=== PATIENT | female | born 1935 | race Caucasian/White ===

== ENCOUNTER 2020-11-14 07:27 | Outpatient (REF) | payer SELFPAY ==
[2020-11-14 07:59] LABS: Hematocrit 34.8 % (37-47); Hemoglobin 11.2 g/dl (12.0-16.0); Mean Corpuscular HGB Conc 32.2 g/dl (31.0-35.0); Mean Corpuscular Hemoglobin 32.1 pg (27.0-33.0); Mean Corpuscular Volume 99.7 fL (80-98); Platelet Count 136 X10*3/uL (160-400); Red Blood Count 3.49 X10*6/uL (4.20-5.50); Red Cell Distribution Width 15.3 % (11.0-16.0); White Blood Count 4.6 X10*3/uL (4.8-10.8)
[2020-11-14 08:25] LABS: Alanine Aminotransferase 25 U/L (0-31); Albumin Level 3.4 g/dL (3.5-5.0); Alkaline Phosphatase 87 U/L (39-117); Anion Gap 9 (12-20); Aspartate Amino Transferase 26 U/L (5-31); Bilirubin Total 0.5 mg/dL (0.0-1.0); Blood Urea Nitrogen 30 mg/dL (9-16); Calcium 8.3 mg/dL (8.4-10.2); Carbon Dioxide 34 mmol/L (22-29); Chloride 101 mmol/L (96-108); Estimated Glomerular Filt Rate 41; Glucose Random 94 mg/dL (60-115); Potassium 4.4 mmol/L (3.3-5.1); Sodium 140 mmol/L (135-145); Total Protein 5.6 g/dL (6.5-8.0)
[2020-11-14 08:46] LABS: Thyroid Stimulating Hormone 2.91 uIU/mL (0.32-4.0)
== END 2020-11-14 07:28 | disposition home or self-care (01) ==
LOC: HO.MMNH1L 07:27
PROVIDERS: Visit Provider Family Medicine
DX: U07.1 COVID-19 (principal); I10 Essential (primary) hypertension
CPT/HCPCS: 36415; 80053; 84443; 85027

== ENCOUNTER 2025-04-15 09:59 | Emergency (ER) | payer OTHER, MEDICARE, SELFPAY ==
[2025-04-15 10:16] VITALS: BP 142/49; BP 150/70; PULSE 59; PULSE 61; RESP 15; TEMP 36.9; O2SAT 92; BMI 27.5
--- NOTE | 2025-04-15 11:09 | ED_ITS ---
HPI - General Adult General Chief complaint: Eye Problems Stated complaint: ?Shingles, right eye infection, swollen closed Time Seen by Provider: 04/15/25 10:37 Source: patient and family Mode of arrival: ambulatory Limitations: language barrier (has aphasia) History of Present Illness ED Provider: HPI narrative: 89-year-old woman with history of stroke and aphasia, presenting with erythema, vesicles, swelling of the right eye with some crusting for the past 3 days, initially seen at [facility] they had prolonged wait times and left without being seen, no fevers or chills, patient does speak some and denied pain, no weakness in upper or lower extremities no altered mentation reported. Related Data Previous Rx's ?Medication ?Instructions ?Recorded erythromycin 5 mg/gram (0.5 %) eye 0.5 inch ophthalmic -Right TID 7 04/15/25 ointment days #3.5 grams prednisone 20 mg tablet 40 mg (2 x 20 mg) PO DAILY 5 days 04/15/25 #10 tabs valacyclovir 500 mg tablet 1,000 mg (2 x 500 mg) PO TI D 7 04/15/25 days #42 tabs Allergies Allergy/AdvReac Type Severity Reaction Status Date / Time saccharin (SACCHARIN) AdvReac Mild LOOSE Verified 04/15/25 10:18 STOOLS soy (SOY) AdvReac Mild LOOSE Verified 04/15/25 10:18 STOOLS Review of Systems Constitutional: Constitutional: Reports as per [facility] Social History Social History Advance Directives: No Advance Directives Information Provided: Yes Physical Exam ED Vital Signs: Vital Signs - 24 hr 04/15/25 10:16 Temperature 98.4 F Pulse Rate 59 Respiratory Rate 15 Blood Pressure 142/49 H Pulse Oximetry 92 Oxygen Delivery Method Nasal Cannula BMI result Body Mass Index 27.5 Const Other: * Gen: ?Elderly woman with facial rash * HEENT: Wood's lamp examination of the right eye performed, there was no evidence of dendrites but corenal abrasion present involving the mid visul field, no lesions in the ER, no lesions in the nose * Neck: No spreading of the lesions over the neck of the scalp * CV: RRR, no obvious murmurs appreciated * Resp: ?No wheezing rales rhonchi no stridor moving air well * Abd: ?Bowel sounds are present, no tenderness no rebound no rigidity * MSK: FROM, strength 5/5 all extremities * Skin: Erythematous forehead and face not crossing the midline with vesicles that are now crusting over, and supra pupil swelling, in the V1 V2 nerve distribution * Neuro: Alert, at her baseline moving upper and lower extremities symmetrically, no obvious facial asymmetry noted Medications Administered Discontinued Medications Generic Name Dose Route Start Last Admin Trade Name Bjq PRN Reason Stop Dose Admin Fluorescein Sodium 1 strip 04/15/25 11:09 04/15/25 12:55 Fluorescein Sodium Strip EYE-LEFT 04/15/25 11:10 1 strip ONCE ONE Administration Tetracaine HCl 1 drop 04/15/25 11:09 04/15/25 12:55 Tetracaine Hcl 0.5% Oph Catherine 5 Ml Drops EYE-LEFT 04/15/25 11:10 1 drop ONCE ONE Administration Tetracaine HCl 1 drop 04/15/25 11:30 04/15/25 11:47 Tetracaine Hcl/Pf 0.5% Oph Catherine 4 Ml Drops EYE-LEFT 04/15/25 11:31 Not Given ONCE ONE Medical Decision Making Medical Decision Making [facility] Narrative: Patient is presenting with V1 V2 shingles on the right side, does not appear to be disseminated, does not appear to be involving her optic nerve or ophthalmic nerve, there was no altered mentation she is nonfebrile is no indication that this is presenting with encephalitis, we will need antibiotic ointment for the eye as she has some crusting, and Wood's lamp examination does not reveal any evidence for dendrites, there is a corneal abrasion vision is intact grossly at bedside Differential Diagnosis Differential Diagnoses: The differential diagnosis associated with the presentation includes Herpes zoster, disseminated zoster, encephalitis, cellulitis, zoster Romi's, zoster ophthalmicus Critical Care Time Critical Care Time Total Critical Care Time: 45 Attestation: Time is exclusive of separately billable procedures. Time includes: direct patient care, patient reassessment, coordination of patient care, interpretation of data (laboratory data, pulse oximetry, arterial blood gases and chest xrays), review of patient's medical records, medical consultation and documentation of patient care. Procedures excluded from critical care time: central intravenous line placement and electrocardiography. Discharge Plan Discharge Clinical Impression: Bacterial conjunctivitis Corneal abrasion Qualifiers: Encounter type: initial encounter Laterality: right Qualified Code(s): S05.01XA - Injury of conjunctiva and corneal abrasion without foreign body, right eye, initial encounter Herpes zoster Qualifiers: Herpes zoster complications: with other complications Qualified Code(s): B02.8 - Zoster with other complications Patient Disposition: Home, Self-Care Instructions: Shingles (ED), Corneal Abrasion (DC) Additional Instructions: As discussed there is shingles on the right side of the face, there was no involvement of the cornea but there was a corneal abrasion, clean the eye as we have discussed and then apply erythromycin ointment 3 times a day, steroids to help with the pain and swelling and valacyclovir as an antiviral take 2 pills 3 times a day, any confusion, spiking fevers, significant headaches come back to the ER, you can take Tylenol 975 mg every 6 hours needed for pain Prescriptions: New prednisone 20 mg tablet 40 mg PO DAILY 5 Days Qty: 10 0RF valacyclovir 500 mg tablet 1,000 mg PO TID 7 Days Qty: 42 0RF erythromycin 5 mg/gram (0.5 %) ointment 0.5 inch ophthalmic-Right TID 7 Days Qty: 3.5 0RF Referrals: Xochitl Lincoln NP [Primary Care Provider, Internal Medicine] - 1 week Clinical Impression: Corneal abrasion; Bacterial conjunctivitis; Herpes zoster Print Language: Barbadian
[2025-04-15] MEDS: Fluorescein Sodium STRIP 1 STRIP EYE-LEFT (12:55)
[2025-04-15] MEDS: Tetracaine HCl 0.5% Oph Sol 5 ML DROPS 1 DROP EYE-LEFT (12:55)
[2025-04-15 13:19] VITALS: BP 140/59; PULSE 60; RESP 16; TEMP 36.9; O2SAT 94
[2025-04-15 13:20] VITALS: BP 140/59; PULSE 60; RESP 16; TEMP 36.9; O2SAT 94
== END 2025-04-15 13:30 | disposition home or self-care (01) ==
PROVIDERS: Emergency Provider Emergency Medicine; PCP Nurse Practitioner Family
DX: B02.8 Zoster with other complications (principal); H10.89 Other conjunctivitis; H57.89 Other specified disorders of eye and adnexa; S05.01XA Injury of conjunctiva and corneal abrasion without foreign body, right eye, initial encounter; X58.XXXA Exposure to other specified factors, initial encounter; Y93.9 Activity, unspecified; Y92.9 Unspecified place or not applicable; Y99.9 Unspecified external cause status
CPT/HCPCS: 99282; 99283; 99291

== ENCOUNTER 2025-09-22 07:21 | Emergency (ER) | payer MEDICARE, OTHER, SELFPAY ==
--- NOTE | ~2025-09-22 | CT_ITS ---
EXAMINATION: CT CERVICAL SPINE WITHOUT CONTRAST CLINICAL INFORMATION: Fall, neck pain, head strike. On blood thinners. COMPARISON: None available. TECHNIQUE: Spiral CT imaging of the cervical spine performed in axial plane without contrast. Multiplanar reformatted images were constructed from the axial data set. This CT examination was performed using dose optimization techniques as appropriate, variously including the following: *Automated exposure control *Adjustment of mA and/or kV according to patient size (this includes techniques or standardized protocols for targeted exams where dose is matched to indication/reason for exam; i.e. extremities or head) *Use of iterative reconstruction technique FINDINGS: CORONAL ALIGNMENT: -Normal. SAGITTAL ALIGNMENT: -Straightening of the normal lordosis. -2 mm degenerative anterolisthesis C3 on C4. -2 mm degenerative retrolisthesis C4 on C5, and C6 on C7. C1-C2 AND CRANIOCERVICAL JUNCTION: -Intact and normally aligned. There are moderate degenerative changes in the anterior atlantoaxial joint. VERTEBRAL BODIES AND FACETS: -There is no fracture, compression deformity, or traumatic subluxation. No suspicious bone lesion. -Normal facet alignment bilaterally. Fusion of the C4-5 facets on the left, likely degenerative. DISCS: -Severe multilevel disc degeneration is present throughout. There are prominent Schmorl's nodes in the superior endplates of C7 and T1. CENTRAL CANAL: -No evidence of high-grade central canal narrowing or large disc herniation allowing for modality limitations. PREVERTEBRAL AND PARAVERTEBRAL SOFT TISSUES: -There is no prevertebral or paravertebral soft tissue swelling or edema. No abnormal fluid collections. -The thyroid is normal without nodule. -Moderate to heavy carotid bulb calcifications right greater than left. LUNG APICES: -Pleural lipoma in the posterior left apex. -Respiratory motion degradation is present, however the individual apices are grossly clear. Partial expiratory appearance. -There is a 4 mm left apical nodule with a central calcification suggestive of a granuloma. This appears unchanged from a CT angiography neck examination 04/13/2019. CT/CT cervical spine wo IV con IMPRESSION: 1. No CT evidence of acute cervical spine fracture or injury. 2. Moderate diffuse degenerative spondylosis. Electronically signed by: Vignesh Warren MD 09/22/2025 09:47 AM [facility]
--- NOTE | ~2025-09-22 | CT_ITS ---
EXAMINATION: CT HEAD WITHOUT CONTRAST CLINICAL INFORMATION: Fall, on blood thinners. Laceration above right eye. Reported LOC. COMPARISON: 04/13/2019. TECHNIQUE: Contiguous axial imaging was performed from the skull base to vertex without intravenous administration of contrast. This CT examination was performed using dose optimization techniques as appropriate, variously including the following: *Automated exposure control *Adjustment of mA and/or kV according to patient size (this includes techniques or standardized protocols for targeted exams where dose is matched to indication/reason for exam; i.e. extremities or head) *Use of iterative reconstruction technique FINDINGS: There is no evidence of intracranial hemorrhage or extra-axial fluid collection. There is no mass effect, or edema. No CT evidence of acute territorial infarct. Old large territory infarct in the left MCA distribution with associated cystic encephalomalacia, and extra vacuo dilatation of the left lateral ventricle atrium and temporal horn, with lesser degree of the body. Ventricles, sulci, and cisterns are otherwise normal in size and configuration for patient age. No hydrocephalus. No midline shift. Negative hyperdense MCA sign. Negative insular ribbon sign. There are pachymeningeal calcifications present. Patchy periventricular and deep white matter hypoattenuation is consistent with moderate small vessel ischemic changes. Normal pituitary. Atheromatous calcification of the bilateral carotid siphons and V4 segments vertebral arteries bilaterally. Globes and orbital contents image normally. There is a right lens replacement. There is right supraorbital scalp soft tissue swelling and laceration. The paranasal sinuses, mastoid air cells, and tympanic cavities are normally aerated. No suspicious bony abnormalities. There are no acute fractures evident. CT/CT head/brain wo IV con IMPRESSION: 1. No acute intracranial abnormality. No acute fracture evident. 2. Right frontal/supraorbital scalp soft tissue swelling and laceration. 3. 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 Electronically signed by: Vignesh Warren MD 09/22/2025 09:53 AM EST
[2025-09-22 07:27] VITALS: BP 150/92; PULSE 68; PULSE 74; RESP 12; O2SAT 97; BMI 26.3
--- NOTE | 2025-09-22 07:39 | ED_ITS ---
HPI - Fall General Chief Complaint: Fall Stated Complaint: FALL + HEAD STRIKE + COLLAR Time Seen by Provider: 09/22/25 07:29 Source: family (son) and EMS Mode of arrival: EMS Limitations: other (dementia) History of Present Illness ED Provider: HPI Narrative: Elderly female brought from home after a ground-level fall in her kitchen, witnessed remotely by family via video camera. Family reports the patient tripped while not using her walker. Patient is on blood thinners and uses home oxygen at 2 L baseline. She sustained a 2 cm laceration above the right eye (no ocular involvement) and a right knee skin tear. No reported loss of consciousness. Patient is confused and repeatedly states her age as ?11.? She denies pain elsewhere but exam limited by confusion. No chest pain or shortness of breath reported. Related Data Previous Rx's ?Medication ?Instructions ?Recorded erythromycin 5 mg/gram (0.5 %) eye 0.5 inch ophthalmic -Right TID 7 04/15/25 ointment days #3.5 grams prednisone 20 mg tablet 40 mg (2 x 20 mg) PO DAILY 5 days 04/15/25 #10 tabs valacyclovir 500 mg tablet 1,000 mg (2 x 500 mg) PO TI D 7 04/15/25 days #42 tabs Allergies Allergy/AdvReac Type Severity Reaction Status Date / Time saccharin (SACCHARIN) AdvReac Mild LOOSE Verified 09/22/25 07:39 STOOLS soy (SOY) AdvReac Mild LOOSE Verified 09/22/25 07:39 STOOLS Review of Systems 2 Review of Systems: Yes Unobtainable due to mental status Constitutional: Constitutional: Reports as per [facility] Social History Social History Smoked in Last 30 Days: No Use of substances other than those prescribed or required for medical reasons: No Advance Directives: No Advance Directives Information Provided: Yes Physical Exam 2 Exam: Exam: General: Elderly female, confused, answers questions inappropriately (states age as 11). Head: 2 cm laceration superior to right eye, no orbital involvement. Eyes: Pupils equal; no obvious ocular injury. Mouth/Oral: No oral trauma. Neck: Cervical collar as patient was not able to tolerate, she was noted to be moving her neck without any pain or visible discomfort Chest: No tenderness to palpation; no visible bruising. Lungs are clear S1-S2 Musculoskeletal: Right knee skin tear noted; injury not fully visualized as pants were not removed during initial exam. Hips with abnormal motion noted. Ankles without deformity or tenderness. Neurologic: Alert but disoriented; answers questions inappropriately. Skin: Laceration above right eye, right knee skin tear. also 2 cm thenar eminence right hand Vital Signs: Vital Signs: Last Vital Signs Pulse 68 09/22/25 07:27 Resp 12 09/22/25 07:27 BMI result Body Mass Index 26.3 Medications Administered Discontinued Medications Generic Name Dose Route Start Last Admin Trade Name Julio Cesar PRN Reason Stop Dose Admin Lidocaine HCl 10 ml 09/22/25 07:39 09/22/25 08:54 Lidocaine Hcl 1 % 20 Ml Vial INFILTRATI 09/22/25 07:40 10 ml ONCE ONE Administration Procedures Laceration forehead: Site: face Side (If applicable): right Size (cm): 2 Description: flap Depth: simple, single layer Local Anesthetic: lidocaine 1% Amount of anesthesia used (mL): 5 Pre-repair: irrigated extensively Skin layer closed with: nylon Size (cm): 5-0 Number of sutures: 8 Technique: running right hand: Side (If applicable): right Size (cm): 2 Description: linear Depth: simple, single layer Local Anesthetic: lidocaine 1% Amount of anesthesia used (mL): 5 Pre-repair: irrigated extensively Skin layer closed with: nylon Size (cm): 3-0 Number of sutures: 7 Technique: running Medical Decision Making Medical Decision Making MDM Narrative: Assessment & Plan Elderly female on anticoagulation with ground-level fall, head laceration, confusion, and right knee skin tear. No focal neurologic deficits noted on initial exam, she does have baseline dementia we will obtain additional information from family Will proceed with wound repair and neuro-imaging due to anticoagulation and altered mental status. Problem #1: Scalp/forehead laceration above right eye Assessment: 1?2 cm laceration, no ocular involvement. Plan: - Irrigate and anesthetize with lidocaine. - Suture repair in ED. - Family notified; standard wound care instructions to be provided at discharge. Problem #2: Fall on anticoagulation with confusion Assessment: Ground-level fall, on blood thinners, currently confused/disoriented. Plan: - CT head and neck ordered to rule out intracranial bleeding. - Neurologic checks in ED while awaiting imaging. - Update family on imaging results and further care plan. Problem #3: Right knee skin tear Assessment: Superficial skin tear to right knee. Plan: - Clean wound; apply gauze and tape dressing. - Provide wound care instructions on discharge. Differential Diagnosis Differential Diagnoses: The differential diagnosis associated with the presentation includes (Head injury, neck injury, hip injuries, syncope, non syncope) Admission/Observation Consideration of admission/observation: Escalation of care including admission/observation considered Lab Data MDM Lab Attestation statement: I reviewed the patient's lab results. 09/22/25 07:43 09/22/25 08:20 Labs: Lab Results 09/22/25 09/22/25 Range/Units 07:43 08:20 WBC 10.2 (4.8-10.8) X10*3/uL RBC 4.38 (4.20-5.50) X10*6/uL Hgb 13.7 (12.0-16.0) g/dl Hct 42.7 (37.0-47.0) % MCV 97.5 (80.0-98.0) fL MCH 31.3 (27.0-33.0) pg MCHC 32.1 (31.0-35.0) g/dl RDW 14.0 (11.0-16.0) % Plt Count 148 L (160-400) X10*3/uL MPV 11.2 (9.4-12.3) fL Immature Gran % (Auto) 0.5 H (0.0-0.4) % Neut % (Auto) 81.4 H (45-73) % Lymph % (Auto) 7.4 L (20-40) % [place] % (Auto) 9.4 (2-11) % Eos % (Auto) 0.9 (0-4) % Baso % (Auto) 0.4 (0-2) % Lymph # (Auto) 0.8 L (1.2-4.9) X10*3/uL [place] # (Auto) 1.0 (0.1-1.2) X10*3/uL Eos # (Auto) 0.1 (0.0-0.4) X10*3/uL Baso # (Auto) 0.0 (0.0-0.2) X10*3/uL Abs Immat Gran (auto) 0.05 H (0.00-0.03) X10*3/uL Absolute Neuts (auto) 8.3 (2.0-8.3) x10*3/uL Absolute Nucleated RBC 0.000 (0.0-0.012) X10*3/uL Nucleated RBC % (auto) 0.0 (0.0-0.2) /100WBC PT 13.7 H (11.2-13.5) SEC INR 1.1 (0.9-1.1) Sodium 139 (135-145) mmol/L Potassium 5.5 H (3.3-5.1) mmol/L Chloride 102 (96-108) mmol/L Carbon Dioxide 28 (22-29) mmol/L Anion Gap 15 (12-20) BUN 35 H (9-16) mg/dL Creatinine 1.70 H (0.5-1.4) mg/dL Estim Creat Clear Calc 22.7 Estimated GFR 28 Random Glucose 107 (60-115) mg/dL Calcium 9.6 D (8.4-10.2) mg/dL Total Bilirubin 0.7 (0.0-1.0) mg/dL AST 53 H (5-31) U/L ALT 15 (0-31) U/L Alkaline Phosphatase 96 (39-117) U/L Troponin I High Sens 9.7 (<3.5-17.0) ng/L Total Protein 7.8 (6.5-8.0) g/dL Albumin 4.6 (3.5-5.0) g/dL Independent Interpretation I performed an independent interpretation of an: EKG (65 beats per minute otherwise normal ECG without dysrhythmia, AV jocelyne blocks or ST-T changes to suspect underlying ACS, my independent interpretation) Radiology Impression Discussion of test interpretation with radiology: I have reviewed the radiologist's reading. Radiologist Impression: No acute intracranial abnormality. No acute fracture evident. 2. Right frontal/supraorbital scalp soft tissue swelling and laceration. 3. 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 CT/CT cervical spine wo IV con IMPRESSION: 1. No CT evidence of acute cervical spine fracture or injury. 2. Moderate diffuse degenerative spondylosis. Independent Historian Clinical information obtained from an independent historian. History obtained from or confirmed by: EMS and Other (Family) Discharge Plan Discharge Clinical Impression: Fall from standing, Face lacerations, Hand laceration Patient Disposition: Home, Self-Care Additional Instructions: Ice to the areas that hurt, Tylenol 975 mg as needed for pain Bruise is to be expected Facial laceration typically recommend removal in 7 days and she has a hand laceration that was repaired as well that can be removed in 7-10 days, would say at the time your removing sutures from the face assess whether the hand laceration can be addressed as well if not wait a few more days Blood work, EKG CT brain, CT cervical spine unremarkable Fall precautions at home Any other issues concerns come back to the ER Otherwise follow up with the PCP Prescriptions: No Action prednisone 20 mg tablet 40 mg PO DAILY 5 Days Qty: 10 0RF valacyclovir 500 mg tablet 1,000 mg PO TID 7 Days Qty: 42 0RF erythromycin 5 mg/gram (0.5 %) ointment 0.5 inch ophthalmic-Right TID 7 Days Qty: 3.5 0RF Print Language: Tajik
--- NOTE | 2025-09-22 07:39 | ECG_ITS ---
Test Reason : fall Blood Pressure : */* mmHG Vent. Rate : 65 BPM Atrial Rate : 65 BPM P-R Int : 168 ms QRS Dur : 76 ms QT Int : 416 ms P-R-T Axes : 76 35 29 degrees QTcB Int : 432 ms Sinus rhythm with Premature atrial complexes Otherwise normal ECG When compared with ECG of 13-Apr-2019 12:30, No significant change was found Referred By: Jose Morales Electronically Signed By: Urbano Ruiz
[2025-09-22 07:50] LABS: MANUAL DIFF FLAG NO
[2025-09-22 07:56] LABS: Hematocrit 42.7 % (37.0-47.0); Hemoglobin 13.7 g/dl (12.0-16.0); Imm Gran Abs Auto 0.05 X10*3/uL (0.00-0.03); Imm Gran Pct Auto 0.5 % (0.0-0.4); Lymphocytes Absolute Auto 0.8 X10*3/uL (1.2-4.9); Mean Corpuscular HGB Conc 32.1 g/dl (31.0-35.0); Mean Corpuscular Hemoglobin 31.3 pg (27.0-33.0); Mean Corpuscular Volume 97.5 fL (80.0-98.0); NRBC Abs Auto 0.000 X10*3/uL (0.0-0.012); NRBC Pct Auto 0.0 /100WBC (0.0-0.2); Platelet Count 148 X10*3/uL (160-400); Red Blood Count 4.38 X10*6/uL (4.20-5.50); White Blood Count 10.2 X10*3/uL (4.8-10.8)
[2025-09-22 07:58] LABS: INTERNATIONAL NORM RATIO 1.1 (0.9-1.1); Prothrombin Time 13.7 SEC (11.2-13.5)
--- NOTE | 2025-09-22 08:25 | MHC.EDTECH ---
Skin tear cleaned with normal saline on right knee, non-adhesive dressing applied and secured with an KUSH bandage. Right eye cleaned with normal saline. Tolerated well by patient
[2025-09-22 08:42] LABS: Alanine Aminotransferase 15 U/L (0-31); Albumin Level 4.6 g/dL (3.5-5.0); Alkaline Phosphatase 96 U/L (39-117); Anion Gap 15 (12-20); Aspartate Amino Transferase 53 U/L (5-31); Blood Urea Nitrogen 35 mg/dL (9-16); Calcium 9.6 mg/dL (8.4-10.2); Carbon Dioxide 28 mmol/L (22-29); Chloride 102 mmol/L (96-108); Creatinine Clr Calc Pharmacy 22.7; Estimated Glomerular Filt Rate 28; Potassium 5.5 mmol/L (3.3-5.1); Sodium 139 mmol/L (135-145); Total Protein 7.8 g/dL (6.5-8.0)
[2025-09-22 08:46] LABS: Troponin-I High Sensitivity 9.7 ng/L (<3.5-17.0)
--- OUTSIDE RECORDS SUMMARY | 2025-09-22 08:46 | XMS_ITS | Data Portability ---
Author Organization [place] [facility] Address [address] [place] [id number] Care Team Providers Care Air Traffic Coordinator Name Role Phone MARGARET POWERS Primary Care Provider [phone] Assessment Encounter Date Assessment Date Assessment LastModified by Organization Details LastModified Time 08/14/2020 08/14/2020 Overview/History : Patient was seen today for a primary complaint of new onset upper right extremity swelling that started 4 days ago. Patient and family report no mechanism of injury or fall. The dependent bilateral 2-3+ edema to her LE that is chronic has also increased with the RLE being greater than the left. Patient reports increased SOB and weakness. Her medical history is significant for bowel cancer; she had a surgical procedure for removal of cancerous bowel years ago. Her history is also significant for carotid endarterectomy bilaterally, HTN, hyperlipidemia, depression and stroke x 2 with her last stroke 04/2019. Exam: Patient HR initially on 02 sat monitor 76. HR by auscultation 124 irregularly irregular. At this point, an ECG was completed and resulted to new onset AFIB. Patient lung sounds diminished, tachypneic at a rate of 24. Her abdomen is firm palpation, particularly the upper left and right quadrants, her BS are hypoactive throughout. Patient's upper right extremity is edematous, non-pitting and cooler to touch when compared to the left side. Edema noted to LE, 2-3+ pitting, the right side greater than the left. Patient radial pulses palpable, upper left 2+, upper right radial pulse 1+. Unable to appreciate LE pulses due to edema and compression wrap. Patient neuro grossly intact with exception of noted right LE weakness which is baseline per patient and family report. DDx considered, but not limited to: New onset AFIB verified by EKG DVT cannot be ruled out to upper right extremity given cool limb, soft radial pulse, new onset edema CHF considered, however, lung sounds clear Work up/Results: EKG - new onset AFIB Peripheral IV #20 guage left AC placed Plan/Discussion: 1. Discussed transfer to ED to manage new onset AFIB and evaluate for DVT. Family and patient agree to escalation. Patient transferred to the care of [facility]. Expect called to [facility]. The patient's PCP was faxed a copy of this visit. Proper Personal Protective Equipment (PPE), including surgical mask with face-shield, gloves, gown and shoe covers were donned and doffed appropriately and all equipment cleaned using approved technique with germicidal disposable wipes prior to and after care of this patient according [facility] infection prevention protocols. In order to obtain further information and compare any laboratory results/values, I have accessed old patient records. This information was pertinent in my medical decision making today.dm Time On Scene with Patient: 01:08:20 - Referred - Point of Care: Emergency Department Not available 08/14/2020 12:50:22 10/14/2022 10/14/2022 Brief Overview: Patient is a 87 year old female who is new to DH/new to provider who has a PMH including carotid endarterectomy bilaterally, HTN, hyperlipidemia, depression and stroke x 2 with her last stroke 04/2019, A FIB on [facility] who is being today for reports of productive cough. Patient with aphasia from her stroke so conversation at times difficult. Most of history obtain via daughter Amy on the telephone who is also her HCP. Productive cough has been ongoing for 1 week now, denies any fevers, eating and drinking without issue. Daughter in law was present in the home and states she just had bowl of soup, she is also sipping on water bottle. Pt herself denies any SOB/CP, just complains of the cough with a pile of Kleenex on bedside table. Daughter also reports she has gained 5-10 pounds over the course of month so she will be resuming her Torsemide. Vital Signs: HR 82-118 via radial, 98.7, 112/68 RR 20 initial o2 sat 80% however with deep inspiration 89%. Spoke with daughter on the phone, she states this is her baseline 02 sat/HR given the a fib. Exam: Patient seen in her home, daughter in law present. Vitals stable, a febrile. LS CTA aside from bases with rhonci/dim. She has aphasia so answering questions hard for her to find words. + BS x4. Abd soft/non tender. No lymphadenopathy present. Tonsils without erythema or exudate. EAC without erythema or edema. Moist mucous membranes. Bilateral LE with 1+ edema. DDx considered, with rationale: CAP; considered given an initial o2 saturation low without deep inspiration, productive cough, adventitious lung sounds. Viral syndrome; considered givens symptoms. Rapid COVID/flu negative, will send panel for further review.. Sepsis; ruled out with physical exam, well appearing/non toxic, without hypotension. Long discussion had with her daughter Amy over the phone (she is also patient's HCP as pt cannot make decisions for herself). I initially expressed my concern with patients low o2 level however patient was able to bring up to 89% when asked to take deep breaths. Daughter states this is her baseline and she is without any SOB/in no distress. Given her lung sounds/productive cough with low 02 sats will initiate tx for presumed CAP. Daughter is also resuming her Torsemide today given her weight gain/LE edema. She will also follow up with her renal MD for further dose adjustments. I do not hear any crackles in her lungs so that is reassuring. Presumed CAP; -- CXR pending -- Allergy PCN/ she is without significant comorbidities so will prescribe Doxycycline to be taken as directed. -- Respiratory panel pending I have provided daughter /HCP Amy with [facility]'s contact information. Aware we will also follow up with CXR results and her respiratory panel. She will also follow up with PCP in 5-7 days. ED precautions discussed as well; any SOB, CP, change in mental status, inability to tolerate oral intake, weakness. Patient/daughter in agreement with plan and thanked us for the care provided. All questions asked answered. Proper Personal Protective Equipment (PPE), including gloves, eye protection and masks were donned and doffed appropriately and all equipment cleaned using approved technique with germicidal disposable wipes prior to and after care of this patient according to [facility]'s infection prevention protocols. [email or web address] Not available 10/14/2022 12:54:59 Plan of Treatment Reminders Order Date Submit Date Provider Last Modified By Organization Details Last Modified Time Details Appointments None recorded. Lab respiratory virus panel 2022 023 JADWIN [facility] (Centralized Electronic Ordering - All Locations), Patient Can Go To The Location Of Their Choice, [id number] 3 02:06:55 rapid flu (A+B) 2022 023 [email or web address] [facility], [address] [facility], [place], [address], 3 12:23:01 rapid SARS CoV 2 Ag, QL IA, respiratory specimen 2022 023 [email or web address] [facility], [address] [facility], [place], [address], 3 12:23:03 Referral None recorded. Procedures None recorded. Surgeries None recorded. Imaging XR, chest, 2 view - CALL DAUGHTER AMY WITH APPT/INFORM ATION [address] [address] [employer] ([employer]), [address] [facility], [place], [address], 3 16:18:07 Medication Orders doxycycline hyclate 100 mg capsule 2022 023 JADWIN [id number], [address] [facility] [place], [address], 3 03:40:43 Patient TargetsNo targets recorded. Patient Instructions Encounter Date Encounter Id Patient Instructions Last Modified By Organization Details Last Modified Time 08/14/2020 [id number] rhythm strip, EKG* [id number] Not availa ble 08/22/2020 11:16:39 Thank you for yo ur visit with [facility] today. We cannot always find the exact cause of your symptoms during your initial visit. Please follow up with your primary care provider or specialist to be rechecked or seek medical attention if your symptoms do not go away or get worse. If you develop any new or worsening symptoms and need after hours care, please go to nearest ER and/or call 911. If you have additional concerns or develop a change in your condition between 8am-10pm, please call [facility] at [phone] to help navigate your care. Not available 08/14/2020 11:53:16 Reason for Referral None Reported. Results Created Date Observation Date Name Description Value Unit Range Abnormal Flag Note LastModifiedBy Organization Detail LastModifiedTime 10/14/1910/17/2022 RESPI RATOR Y PROFI LE, PCR adenovirus Not Detec gayle Refer ence range : Not Detec gayle Not Available [facility] (Centralized Electronic Ordering - All Locations) Patient Can Go To The Location Of Their Choice, 10/17/2022 02:06:55 10/14/1910/17/2022 RESPI RATOR Y PROFI LE, PCR coronavirus hku1 (not covid-19 Not Detec gayle Refer ence range : Not Detec gayle Not Available [facility] (Centralized Electronic Ordering - All Locations) Patient Can Go To The Location Of Their Choice, 10/17/2022 02:06:55 10/14/1910/17/2022 RESPI RATOR Y PROFI LE, PCR coronavirus nl63 (not covid-19 Not Detec gayle Refer ence range : Not Detec gayle Not Available [facility] (Centralized Electronic Ordering - All Locations) Patient Can Go To The Location Of Their Choice, 10/17/2022 02:06:55 10/14/1910/17/2022 RESPI RATOR Y PROFI LE, PCR coronavirus 229E (not covid-19 Not Detec gayle Refer ence range : Not Detec gayle Not Available [facility] (Centralized Electronic Ordering - All Locations) Patient Can Go To The Location Of Their Choice, 10/17/2022 02:06:55 10/14/1910/17/2022 RESPI RATOR Y PROFI LE, PCR coronavirus oc43 (not covid-19 Not Detec gayle Refer ence range : Not Detec gayle Not Available [facility] (Centralized Electronic Ordering - All Locations) Patient Can Go To The Location Of Their Choice, 10/17/2022 02:06:55 10/14/1910/17/2022 RESPI RATOR Y PROFI LE, PCR human metapneumovi jocelyn Not Detec gayle Refer ence range : Not Detec gayle Not Available [facility] (Centralized Electronic Ordering - All Locations) Patient Can Go To The Location Of Their Choice, 10/17/2022 02:06:55 10/14/1910/17/2022 RESPI RATOR Y PROFI LE, PCR human rhinovirus/e nterovirus Not Detec gayle Refer ence range : Not Detec gayle Not Available [facility] (Centralized Electronic Ordering - All Locations) Patient Can Go To The Location Of Their Choice, 10/17/2022 02:06:55 10/14/1910/17/2022 RESPI RATOR Y PROFI LE, PCR influenza A Not Detec gayle Refer ence range : Not Detec gayle Not Available [facility] (Centralized Electronic Ordering - All Locations) Patient Can Go To The Location Of Their Choice, 10/17/2022 02:06:55 10/14/1910/17/2022 RESPI RATOR Y PROFI LE, PCR influenza A/H1 TEST NOT PERFOR MED (NOTE ) Test not perfo rmed Not Available [facility] (Centralized Electronic Ordering - All Locations) Patient Can Go To The Location Of Their Choice, 10/17/2022 02:06:55 10/14/1910/17/2022 RESPI RATOR Y PROFI LE, PCR influenza A/H1-2009 TEST NOT PERFOR MED (NOTE ) Test not perfo rmed Not Available [facility] (Centralized Electronic Ordering - All Locations) Patient Can Go To The Location Of Their Choice, 10/17/2022 02:06:55 10/14/1910/17/2022 RESPI RATOR Y PROFI LE, PCR influenza A/H3 TEST NOT PERFOR MED (NOTE ) Test not perfo rmed Not Available [facility] (Centralized Electronic Ordering - All Locations) Patient Can Go To The Location Of Their Choice, 10/17/2022 02:06:55 10/14/1910/17/2022 RESPI RATOR Y PROFI LE, PCR influenza B Not Detec gayle Refer ence range : Not Detec gayle Not Available [facility] (Centralized Electronic Ordering - All Locations) Patient Can Go To The Location Of Their Choice, 10/17/2022 02:06:55 10/14/19 23 10/17/2022 RESPI RATOR Y PROFI LE, PCR parainfluenz a 1 Not Detec gayle Refer ence range : Not Detec gayle Not Available [facility] (Centralized Electronic Ordering - All Locations) Patient Can Go To The Location Of Their Choice, [facility] [place] 10/17/2022 02:06:55 10/14/19 23 10/17/2022 RESPI RATOR Y PROFI LE, PCR parainfluenz a 2 Not Detec gayle Refer ence range : Not Detec gayle Not Available [facility] (Centralized Electronic Ordering - All Locations) Patient Can Go To The Location Of Their Choice, [facility] [place] 10/17/2022 02:06:55 10/14/19 23 10/17/2022 RESPI RATOR Y PROFI LE, PCR parainfluenz a 3 Not Detec gayle Refer ence range : Not Detec gayle Not Available [facility] (Centralized Electronic Ordering - All Locations) Patient Can Go To The Location Of Their Choice, [facility] [place] 10/17/2022 02:06:55 10/14/19 23 10/17/2022 RESPI RATOR Y PROFI LE, PCR parainfluenz a 4 Not Detec gayle Refer ence range : Not Detec gayle Not Available [facility] (Centralized Electronic Ordering - All Locations) Patient Can Go To The Location Of Their Choice, [facility] [place] 10/17/2022 02:06:55 10/14/19 23 10/17/2022 RESPI RATOR Y PROFI LE, PCR respiratory syncytial virus Not Detec gayle Refer ence range : Not Detec gayle Not Available [facility] (Centralized Electronic Ordering - All Locations) Patient Can Go To The Location Of Their Choice, [facility] [place] 10/17/2022 02:06:55 10/14/19 23 10/17/2022 RESPI RATOR Y PROFI LE, PCR bordetella pertussis Not Detec gayle Refer ence range : Not Detec gayle Not Available [facility] (Centralized Electronic Ordering - All Locations) Patient Can Go To The Location Of Their Choice, [facility] [place] 10/17/2022 02:06:55 10/14/1910/17/2022 RESPI RATOR Y PROFI LE, PCR chlamydophil a pneumoniae Not Detec gayle Refer ence range : Not Detec gayle Not Available [facility] (Centralized Electronic Ordering - All Locations) Patient Can Go To The Location Of Their Choice, [id number] 10/17/2022 02:06:55 10/14/1910/17/2022 RESPI RATOR Y PROFI LE, PCR mycoplasma pneumoniae Not Detec gayle Refer ence range : Not Detec gayle (NOTE ) This panel does not detec t the novel 2018 Coron aviru s (2018 ). Any posit naveen or negat naveen coron aviru s resul t shoul d not be used to diagn ose patie nts for the V. Pleas e refer to the [facility] websi te for testi ng recom menda tions . Test perfo rmed by [facility], [address], [place] [address] Not Available [facility] (Centralized Electronic Ordering - All Locations) Patient Can Go To The Location Of Their Choice, [id number] 10/17/2022 02:06:55 10/14/1910/14/2022 rapid SARS CoV 2 Ag, QL IA, respi rator y speci men Covid-19 (ref: neg) negati ve Not Available [facility] [address] [place], [address], 10/14/2022 12:21:18 10/14/19 23 10/14/2022 rapid SARS CoV 2 Ag, QL IA, respi rator y speci men Control Visual ized/V alid Not Available [facility] [address] [place], [address], 10/14/2022 12:21:18 10/14/19 23 10/14/2022 rapid SARS CoV 2 Ag, QL IA, respi rator y speci men Location [facility], [facility], [address] [facility], [place] [address], [id number] Not Available [facility] [address] [place], [address], 10/14/2022 12:21:18 10/14/19 23 10/14/2022 rapid flu (A+B) Flu A (ref: neg) negati ve Not Available [facility] [address], [place], [address], 10/14/2022 12:21:04 10/14/19 23 10/14/2022 rapid flu (A+B) Flu B (ref: neg) negati ve Not Available [facility] [address] [facility], [place], [address], 10/14/2022 12:21:04 10/14/19 23 10/14/2022 rapid flu (A+B) Control Visual ized/V alid Not Available [facility] [address] [facility], [place], [address], 10/14/2022 12:21:04 10/14/19 23 10/14/2022 rapid flu (A+B) Location [facility], [address] [facility], [place] [address], [id number] Not Available [facility] [address] [facility], [place], [address], 10/14/2022 12:21:04 10/16/19 23 10/16/2022 XR, chest , 2 view XRAY CHEST 2 VIEW FINDIN GS: Lungs: Right airspa ce opacit ies. Pulmon nancy vascul ature is within normal limits . Diffus e increa se in lung markin gs. Pleura : No pneumo thorax . No pleura l effusi on. Heart and Medias tinum: The cardio medias tinal silhou ette is promin ent in size and contou r. Osseou s struct ures: Visual ized osseou s struct ures are stable . No radiop aque foreig n body. CONCLU KHRIS: Right basila r airspa ce diseas e. Clinic al correl ation. Recomm end follow up examin ation to confir m resolu tion of findin gs. ELECTR ONICAL LY SIGNED BY ABRAN CASANOVA M.D. 023 3:38:3 3 PM EST. XRAY CHEST 2 VIEW Result s: Lungs: Right airspa ce opacit ies. Pulmon nancy vascul ature is within normal limits . Diffus e increa se in lung markin gs. Pleura : No pneumo thorax . No pleura l effusi on. Heart and Medias tinum: The cardio medias tinal silhou ette is promin ent in size and contou r. Osseou s struct ures: Visual ized osseou s struct ures are stable . No radiop aque foreig n body. Conclu khris: Right basila r airspa ce diseas e. Clinic al correl ation. Recomm end follow up examin ation to confir m resolu tion of findin gs. Electr onical ly signed by ABRAN CASANOVA M.D. 023 3:38:3 3 PM EST. josemichellejenise [facility] [address] [place] [address] 4, [place], [address], 10/17/2022 16:24:46 Result Notes Documentation Provider Name and Address Organization Details Recorded Time Xr, Chest, 2 View : XRAY CHEST 2 VIEW FINDINGS: Lungs: Right airspace opacities. Pulmonary vasculature is within normal limits. Diffuse increase in lung markings. Pleura: No pneumothorax. No pleural effusion. Heart and Mediastinum: The cardiomediastinal silhouette is prominent in size and contour. Osseous structures: Visualized osseous structures are stable. No radiopaque foreign body. CONCLUSION: Right basilar airspace disease. Clinical correlation. Recommend follow up examination to confirm resolution of findings. ELECTRONICALLY SIGNED BY DOLLY CASANOVA M.D. 10/16/2022 3:38:33 PM EST. XRAY CHEST 2 VIEW Results: Lungs: Right airspace opacities. Pulmonary vasculature is within normal limits. Diffuse increase in lung markings. Pleura: No pneumothorax. No pleural effusion. Heart and Mediastinum: The cardiomediastinal silhouette is prominent in size and contour. Osseous structures: Visualized osseous structures are stable. No radiopaque foreign body. Conclusion: Right basilar airspace disease. Clinical correlation. Recommend follow up examination to confirm resolution of findings. Electronically signed by DOLLY CASANOVA M.D. 10/16/2022 3:38:33 PM EST. Huber roman, [place] - [facility] 10/17/2022 16:24:46 Procedures Surgical History Date Name Laterality Status Provider Name and Address Organization Details Recorded Time 10/14/19 23 Medication Review completed Cherrie Burnham NP [address] [place], [address], [place] [facility] 10/14/2022 12:34:23 08/14/20 20 IV Start Procedure - completed Rossi Lance NP [address] [place], [address], [place] [facility] 08/14/2020 12:25:23 08/14/20 ECG Interpretation - completed Rossi Lanec NP [address] [place], [address], [place] [facility] 08/14/2020 11:22:46 hysterectomy completed Rossi Lance NP [address] [place], [address], [place] [facility] 08/14/2020 10:38:35 Unlisted px meckel's dvrtclm completed Rossi Lance, GABRIELA [address] [place], [address], [place] [facility] 08/14/2020 10:38:55 Xcapsl ctrc rmvl cplx wo ecp completed Rossi Lance NP [address] [place], [address], [place] [facility] 08/14/2020 10:39:11 Imaging Results None recorded. Procedure Notes None recorded. Medical Equipment None Reported. Allergies Allergen ID Allergen Name Allergen Category Reaction Reaction Severity Criticality Documentation Date Start Date Code Code System Note Provider Name and Address Organization Details Recorded Time 572993 soy environme nt,food,m edication Not available Not available Not available 08/14/2020 Rossi Lance NP [address] [place], [address], [place] [facility] 0 10:28:21 159794 house dust allergeni c extract environme nt,medica tion Not available Not available Not available 08/14/2020 99175 9 RxNorm Rossi Lance NP [address] [place], [address], [place] [facility] 0 10:29:11 239498 Product containin g penicilli n (product) medicatio n Not available Not available Not available 10/14/2022 55267 8001 SNOMED Cherrie Burnham, EMS DRIVER [address], [place], [address], [place] [facility] 3 12:31:40 Medications Name Sig Start Date Stop Date Status Note LastModified by Organization Details LastModified Time doxycycline hyclate 100 mg capsule TAKE 1 CAPSULE BY MOUTH TWICE A DAY FOR 5 DAYS active Not Available Not Available No t Available torsemide 20 mg tablet active Not Available Not Available Not Available metoprolol succinate ER 50 mg tablet,exte nded release 24 hr TK 1 T PO QD active Not Available Not Available No t Available metoprolol succinate ER 100 mg tablet,exte nded release 24 hr TAKE 1 TABLET BY MOUTH EVERY DAY active Not Available Not Available No t Available amlodipine 5 mg tablet TAKE 1 TABLET BY MOUTH EVERY DAY active Not Available Not Available No t Available amlodipine 10 mg tablet active Not Available Not Available Not Available lisinopril 10 mg tablet active Not Available Not Available Not Available levofloxaci n 500 mg tablet 08/14 completed Not Available Not Available Not Available sodium polystyrene sulfonate 15 gram oral powder TAKE 8 LEVEL TEASPOONS EVERY THURSDAY AND THURSDAY *SEPARATE FROM OTHER MEDS BY 3 HOURS* active Not Available Not Available No t Available sertraline 50 mg tablet TAKE 1 TABLET BY MOUTH EVERY DAY active Not Available Not Available No t Available rosuvastati n 5 mg tablet TAKE 1 TABLET BY MOUTH EVERY DAY active Not Available Not Available No t Available memantine 10 mg tablet TAKE 1 TABLET BY MOUTH TWICE A DAY FOR 90 DAYS active Not Available Not Available No t Available memantine 5 mg tablet TK 1 T PO BID active Not Available Not Available No t Available aspirin active Not Available Not Avail able Not Available lisinopril 08/14 completed Not Available Not Available Not Available metoprolol succinate active Not Available Not Available No t Available rosuvastati n 08/14 completed Not Available Not Available Not Available memantine 08/14 completed Not Available Not Available Not Available Lumigan 0.01 % eye drops INSTILL 1 DROP INTO BOTH EYES EVERY DAY IN THE EVENING active Not Available Not Available No t Available Eliquis 2.5 mg tablet TAKE 1 TABLET BY MOUTH TWICE A DAY active Not Available Not Available No t Available Kapspargo Sprinkle 50 mg capsule,ext ended release active Not Available Not Available Not Available Vitals Date Recorded Heart rate Oxygen saturation Respiratory rate Body temperature Oxygen saturation Heart rate Systolic And Diastolic Provider Name and Address Organization Details Last Updated DateTime 3 118 /min 80 % 20 /min 98.7 [degF] 89 % 82 /min 122/68 mm[Hg] Not Available [facility] 3 12:14:36 Date Recorded Respiratory rate Oxygen saturation Heart rate Body temperature Systolic And Diastolic Provider Name and Address Organization Details Last Updated DateTime 0 24 /min 93 % 76 /min 98.7 [degF] 98/54 mm[Hg] Not Available [facility] 0 10:34:41 Social History Question Answer Notes LastModified by Organizat ion Details LastModified Time Tobacco Smoking Status Former Smoker Rossi aLnce, GABRIELA [address] [facility] [place], [address], [place] [facility] 08/14/2020 10:31:57 Do You Have An Advance Directive? Yes Information not available 08/14/2020 What Is Your Code Status? Full Code Information not available 08/14/2020 Within The Past 12 Months, Has It Happened That The Food You Bought Just Didn't Last And You Didn't Have Money To Get More. No Information not available 08/14/2020 Within The Past 12 Months, Have You Worried That Your Food Would Run Out Before You Got Money To Buy More. No Information not available 08/14/2020 Fall Risk: Do You Feel Unsteady When Standing Or Walking? No Information not available 08/14/2020 We Know That How And When People Interact With Friends And Family Can Be Very Different From Person To Person. How Often Do You Have The Opportunity To See Or Talk To People That You Care About And Feel Close To? (Ex: Talking To Friends On The Phone Or Visiting Friends Or Family Or Going To Gnosticist Or Club Meetings) 1 Or 2 Times Per Week Information not available 08/14/2020 Excessive Alcohol Or Drug Use No Information not available 08/14/2020 We Know From Many Of Our Patients That Covering All Of Their Costs Can Be Difficult At Times. This Can Cause Stress And Impact Health. In The Past Year, Have You Been Unable To Get Any Of The Following When It Was Really Needed? No Information not available 08/14/2020 What Is Your Housing Situation Today? I Have Housing Information not available 08/14/2020 Would You Like Help Connecting To Resources? None Information not available 08/14/2020 How Many Years Have You Smoked Tobacco? 50 Information not available 08/14/2020 Sex: Unknown Functional Status None recorded. Mental Status None recorded. Family History Relationship Description Onset Age of this Age Resolved Age Notes LastModified by Organization Details LastModified Time Father No current problems or disability Not available 08/14 10:31:42 Mother No current problems or disability Not available 08/14 10:31:42 Medical History Condition Response Diabetes N Coronary Artery Disease Y High Cholesterol Y Pulmonary Embolism N Cancer Y Hypertension Y Stroke Y Asthma N COPD N Depression Y Kidney Disease N Gynecological HistoryNo gynecological history recorded. Obstetrics History GPAL:G 0 P 0 0 0 0 Past Encounters Encounter ID Performer Location Encounter Start Date Encounter Closed Date Diagnosis/Indication Diagnosis SNOMED-CT Code Diagnosis ICD10 Code Diagnosis IMO Codes Diagnosis Note [id number] Rossi Lance NP [facility] [address] [place] [address] 08/14/2020 10:23:20 08/15/2020 14:33:21 Atrial fibrillation 92727960 I48.91 [id number] Cherrie Burnham NP [facility] [address] [place] [address] 10/14/2022 12:00:52 10/16/2022 12:54:40 Productive cough 10357481 R05.9 Community acquired pneumonia 917463909 J18.9 Health Concerns Section Related Observation LastModified by Organization Detai ls LastModified Time None Recorded Concern Status LastModified by Organization Details LastModified Time None Recorded Advance Directives Directive Y: Payers Insurance Date Sequence Insurance Name Policy Number Policy Rajan Covered Member ID Rajan Member ID Guarantor Name 08/14/2020 1 [facility] (MEDICARE REPLACEMENT/AD VANTAGE - HMO) [id number] Joan Glasgow [id number] Joan Horacio 10/14/2022 2 [facility] (MEDICARE SUPPLEMENT) Joan Glasgow [id number] Joan Glasgow 08/14/2020 1 [place] [employer] [employer] Joan Glasgow [id number] Joan Horacio 10/14/2022 1 [place] Joan Landin Horacio [id number] Joan Glasgow 08/14/2020 1 *SELF PAY* Joan Glasgow [id number] Joan Horacio 08/14/2020 1 [facility] (MEDICARE REPLACEMENT/AD VANTAGE - HMO) [id number] Joan Glasgow [id number] Joan Horacio 10/14/2022 [facility] Joan Horacio [id number] Joan Leonard Notes Date Note Type Note Provider Name and Address Organization Details Recorded Time 08/14/2020 text/html General HPI Temp late - DHReported by Patient Patient is an alert 88 year old female who has a baseline history of dementia and aphasia resulting from a history of stroke x2. She is very pleasant and able to answer most yes/no questions. She is well groomed, in no apparent distress and seated in an arm chair. She does not appear toxic. Patient is new to [facility] and new to this provider. Patient family requests evaluation for new onset swelling to her upper right extremity and increased edema to her lower extremities more than baseline. The increasing edema to LE and new upper right extremity edema has gradually worsened over the past four days. Patient medical history significant for stroke x 2; her most recent stroke was 04/2019. She also has a history of HTN, hyperlipidemia, CAD where she underwent bilateral carotid endarterectomy years ago, bowel cancer, vascular dementia, aphasia and glaucoma. Rossi Lance, [address], [place], [address], [place] [facility] 08/14/2020 12:58:22 10/14/2022 text/html Patient is a 87 year old female who is new to /new to provider who has a PMH including carotid endarterectomy bilaterally, HTN, hyperlipidemia, depression and stroke x 2 with her last stroke 04/2019, A FIB on [employer] who is being today for reports of productive cough. Patient with aphasia from her stroke so conversation at times difficult. Most of history obtain via daughter Amy on the telephone who is also her HCP. Productive cough has been ongoing for 1 week now, denies any fevers, eating and drinking without issue. Daughter in law was present in the home and states she just had bowl of soup, she is also sipping on water bottle. Pt herself denies any SOB/CP, just complains of the cough with a pile of Kleenex on bedside table. Daughter also reports she has gained 5-10 pounds over the course of month so she will be resuming her Torsemide. Cherrie Burnham, [address], [place], [address], [place] [facility] 10/14/2022 12:57:36 OBGyn Episode No OBEpisode recorded.
--- OUTSIDE RECORDS SUMMARY | 2025-09-22 08:46 | XMS_ITS ---
Author Organization [facility] Care Team Providers Care Screener And Blender Name Role Phone Spencer Tarango Unavailable Unavailable Monica Kebede Unavailable Unavailable Allergies and adverse reactions Code CodeSystem Substance Reaction Severity StartDate Concern Status Soy Unknown 11/13/2020 active Care Team Name Role Address Phone Organization Dates Spencer Tarango PCP [address] [facility] [address], [place], [address], [place] (Office): : [facility] 11/13/2020 - 11/21/2020 Monica Kebede [address] [facility] [address], [place], [address], [facility] (Office): [facility] 11/13/2020 - 11/21/2020 Immunizations Immunization Status Vaccine Details Vaccine Code CodeSystem Barron e Notes TB 2 Step Mantoux Skin Test completed tuberculin skin test; unspecified formulation lotNumber: [id number] expiry: 11/05/2021 Mfg: PAR pharmaceical Given 0.1 ml Left Forearm intradermally Step 1 of Multi-step 98 CVX created date: 11/13/2020 consent date: 11/14/2020 administere d date: 11/14/2020 Mental Status Section Date Assessment Total Score Description 11/21/2020 CAM 0 No delirium ind icated 11/19/2020 BIMS 10 moderate cognit naveen impairment CAM 0 No delirium ind icated PHQ-9 00 Insurance Providers Coverage Status Coverage Type Relationship to Subscriber Member Identifier Subscriber Identifier Group Identifier Payer Identifier and Other information Code: 1 Code System OID:[id number]. 3.221.5 Code System Name: Source of Payment Typology (PHDWY) Display: Medicare Translation : Code: NAVEEN Code System: OID:2.16.84 [id number]. 6.255.1336 Code System Name: Insurance Type Code ([id number]) Display Name: Medicare Part A Problems Problem # Description Date of onset Resolved Date Code CodeSystem Concern Status 1 APHASIA FOLLOWING CEREBRAL INFARCTION 11/13/[address] active 2 COVID-19 11/13/[address] active 3 ESSENTIAL (PRIMARY) HYPERTENSION 11/13/[address] active 4 HYPERLIPIDEMIA, UNSPECIFIED 11/13/[address] active 5 MUSCLE WASTING AND ATROPHY, NOT ELSEWHERE CLASSIFIED, LEFT ANKLE AND FOOT 11/13/[address] active 6 UNSPECIFIED ATRIAL FIBRILLATION 11/13/[address] active 7 UNSPECIFIED SEQUELAE OF UNSPECIFIED CEREBROVASCULAR DISEASE 11/13/[address] active Reason for Referral No Reasons for Referral Entered Social History Social History Observation Description Start Date End Date Code Code System Current Smoking Status Tobacco smoking consumption unknown 503255822 SNOMED CT Sex Assigned At Female 1935 97157-0 LOINC Gender Identity Sexual Orientation Vital Signs Code Code System Vitals Name Values and Units Timing Information 9279-1 LOINC Respiratory Rate Value=16.0 Units=/m in 11/22/2020 8310-5 LOINC Body Temperature Value=97.3 Units= F 11/22/2020 34132-9 LOINC O2 % BldC Oximetry Value=93.0 Units= % 11/22/2020 99643-2 LOINC Pain Level Value=0.0 11/21/2020 8462-4 LOINC Blood Pressure-Diastolic Value=50 Un its=mmHg 11/21/2020 8480-6 LOINC Blood Pressure-Systolic Zlouj=339 Un its=mmHg 11/21/2020 8867-4 LOINC Heart rate Value=71.0 Units=/min 11071-9 LOINC Weight Zxxpt=908.0 Units=Lbs 8302-2 LOINC Height Value=5.5 Units=Inches 11/13/2020
--- OUTSIDE RECORDS SUMMARY | 2025-09-22 08:46 | XMS_ITS | Clinical Summary ---
Author Organization [facility], Address [address] [place] [address] [place] [address] Phone Care Team Providers Care Autism Specialist Name Role Phone João Lopez MD Primary Care Provider [phone] Allergies Active Allergy Reactions Criticality Noted Date Comments Aspartame 08/29/2020 Dust Mite Extract 08/29/2020 Penicillins 08/29/2020 Soy Allergy (Obsolete) 08/29/2020 Medications aspirin (ST FLORENTIN) 81 MG EC tablet aspirin Active memantine (NAMENDA) 10 MG tablet TK 1 T PO BID 07/18/2020 Active rosuvastatin (CRESTOR) 5 MG tablet TK 1 T PO QD 07/18/2020 Active sertraline (ZOLOFT) 50 MG tablet 08/28/2020 Active metoprolol succinate XL (TOPROL-XL) 100 MG 24 hr tablet Take 100 mg by mouth 1 (one) time each day 01/05/2021 Active amLODIPine (NORVASC) 5 MG tablet Take 5 mg by mouth 1 (one) time each day Active apixaban (ELIQUIS) 5 MG tablet Take 5 mg by mouth 2 (two) times a day Active torsemide (DEMADEX) 20 MG tablet Take 20 mg by mouth 1 (one) time each day Active Active Problems Problem Noted Date Diagnosed Date Chronic systolic heart failure 07/10/2023 Stage 3a chronic kidney disease 01/03/2022 Obstructive uropathy, not otherwise specified Hyperkalemia 11/09/2020 Congestive heart failure 08/29/2020 Retention of urine 08/29/2020 Hypertension 08/29/2020 Unspecified dementia, unspec ified severity, without behavioral disturbance, psychotic disturbance, mood disturbance, and anxiety 08/29/2020 Acute kidney failure Resolved Problems Problem Noted Date Diagnosed Date Resolved Date Acute kidney injury due to trauma 08/29/2020 08/29/2020 Immunizations Immunization Administration Dates Next Due Influenza, Unspecified 08/17/2020,2018,07/29/2018,08/10/2017 ,08/12/2016 Pfizer SARS-COV-2 07/21/2021,01/05/2021,12/16/19 21 Pneumococcal Conjugate 13-Valent 08/17/2020 Social History Tobacco Use Types Packs/Day Years Used Date Smoking Tobacco: Never Assessed Comments Unknown Sex and Gender Information Value Date Recorded Sex Assigned at Not on file Legal Sex Female 2:40 PM EST Gender Identity Not on file Sexual Orientation Not on file Last Filed Vital Signs Vital Sign Reading Time Taken Comments Blood Pressure 130/80 07/10/2023 4:29 PM EDT Pulse 68 07/10/2023 4:29 PM EDT Temperature - - Respiratory Rate - - Oxygen Saturation - - Inhaled Oxygen Concentration - - Weight 68 kg (150 lb) 07/11/2022 4:12 PM EDT Height - - Body Mass Index - - Plan of Treatment Health Maintenance Due Date Last Done Comments Pneumococcal Vaccine: 50+ Years (2 of 2 - PPSV23, PCV20, or PCV21) 10/12/2020 08/17/2020 Influenza Vaccine (#1) 2025 0, 07/21/2019, 07/29/2018, Additional history exists Pneumococcal Vaccine: Peds (0 to 5 Years) and At-Risk Patients (6 to 49 Years) Discontinued 08/17/2020 Hepatitis B Vaccine Aged Out No longe r eligible based on patient's age to complete this topic Insurance Medicare [facility] [id number] Care Teams Autism Specialist Relationship Specialty Start Date End Date João Lopez MD [address] [place] [address] [address] [place] [address] NAVEEN RUSSELL PCP - General Internal Medicine 08/28/20
[2025-09-22] MEDS: Lidocaine HCl 1 % 20 ML VIAL 10 ML INFILTRATI (08:54)
--- NOTE | 2025-09-22 09:22 | PC.NURSE ---
patient taken to Ct scan at this time
[2025-09-22 10:00] VITALS: BP 134/41; PULSE 62; RESP 14; O2SAT 97
[2025-09-22 10:34] VITALS: BP 134/41; PULSE 62; RESP 14; TEMP 36.6; O2SAT 97
== END 2025-09-22 10:35 | disposition home or self-care (01) ==
PROVIDERS: Emergency Provider Emergency Medicine; PCP Nurse Practitioner Family
DX: S01.81XA Laceration without foreign body of other part of head, initial encounter (principal); S61.411A Laceration without foreign body of right hand, initial encounter; R41.0 Disorientation, unspecified; R51.9 Headache, unspecified; W01.0XXA Fall on same level from slipping, tripping and stumbling without subsequent striking against object, initial encounter; Y93.89 Activity, other specified; Y92.190 Kitchen in other specified residential institution as the place of occurrence of the external cause; Y99.8 Other external cause status; Z99.81 Dependence on supplemental oxygen; Z79.01 Long term (current) use of anticoagulants; Z79.899 Other long term (current) drug therapy
CPT/HCPCS: 12001; 12051; 36415; 70450; 72125; 80053; 84484; 85025; 85610; 93005; 99284; J2003

== ENCOUNTER → 2025-09-22 07:39 | Outpatient (BNV) | payer MEDICARE, OTHER, SELFPAY | PROVIDERS: Emergency Provider Emergency Medicine; PCP Nurse Practitioner Family; Visit Provider Radiology Diagnostic Radiology | DX: M54.2 Cervicalgia (principal); M47.812 Spondylosis without myelopathy or radiculopathy, cervical region; S01.01XA Laceration without foreign body of scalp, initial encounter; Z04.3 Encounter for examination and observation following other accident | CPT/HCPCS: 70450; 72125 ==

== ENCOUNTER → 2025-09-22 07:39 | Outpatient (BNV) | payer MEDICARE, OTHER, SELFPAY | PROVIDERS: Emergency Provider Emergency Medicine; PCP Nurse Practitioner Family; Visit Provider Internal Medicine Cardiovascular Disease | DX: I49.1 Atrial premature depolarization (principal) | CPT/HCPCS: 93010 ==